=== PATIENT | female | born 1980 | race Hispanic/Latino ===

== ENCOUNTER 2021-05-13 10:52 | Outpatient (CLI) | payer OTHER | END 2021-05-13 10:53 | disposition home or self-care (01) | LOC: CSHWCC 10:52 | PROVIDERS: ATTEND Nurse Practitioner Family | DX: T81.89XD Other complications of procedures, not elsewhere classified, subsequent encounter (principal); L98.491 Non-pressure chronic ulcer of skin of other sites limited to breakdown of skin; K57.20 Diverticulitis of large intestine with perforation and abscess without bleeding; I10 Essential (primary) hypertension; G89.11 Acute pain due to trauma; Z93.3 Colostomy status | CPT/HCPCS: 97605; 99203; G0463 ==

== ENCOUNTER 2021-05-17 10:56 | Outpatient (CLI) | payer SELFPAY | END 2021-05-17 10:57 | disposition home or self-care (01) | LOC: CSHWCC 10:56 | PROVIDERS: ATTEND Nurse Practitioner Family | DX: T81.89XD Other complications of procedures, not elsewhere classified, subsequent encounter (principal); L98.491 Non-pressure chronic ulcer of skin of other sites limited to breakdown of skin; K57.20 Diverticulitis of large intestine with perforation and abscess without bleeding; G89.11 Acute pain due to trauma; I10 Essential (primary) hypertension; Z93.3 Colostomy status | CPT/HCPCS: 97605; 99213; G0463 ==

== ENCOUNTER 2021-05-20 09:48 | Outpatient (CLI) | payer SELFPAY | END 2021-05-20 09:49 | disposition home or self-care (01) | LOC: CSHWCC 09:48 | PROVIDERS: ATTEND Nurse Practitioner Family | DX: T81.89XD Other complications of procedures, not elsewhere classified, subsequent encounter (principal); L98.491 Non-pressure chronic ulcer of skin of other sites limited to breakdown of skin; G89.11 Acute pain due to trauma; I10 Essential (primary) hypertension; K57.20 Diverticulitis of large intestine with perforation and abscess without bleeding; Z93.3 Colostomy status | CPT/HCPCS: 97605; 99213; G0463 ==

== ENCOUNTER 2021-05-24 09:26 | Outpatient (CLI) | payer SELFPAY | END 2021-05-24 09:27 | disposition home or self-care (01) | LOC: CSHWCC 09:26 | PROVIDERS: ATTEND Nurse Practitioner Family | DX: T81.89XD Other complications of procedures, not elsewhere classified, subsequent encounter (principal); L98.491 Non-pressure chronic ulcer of skin of other sites limited to breakdown of skin; K57.20 Diverticulitis of large intestine with perforation and abscess without bleeding; G89.11 Acute pain due to trauma; I10 Essential (primary) hypertension; Z93.3 Colostomy status | CPT/HCPCS: 97605; 99213; G0463 ==

== ENCOUNTER 2021-05-27 09:48 | Outpatient (CLI) | payer SELFPAY | END 2021-05-27 09:49 | disposition home or self-care (01) | LOC: CSHWCC 09:48 | PROVIDERS: ATTEND Nurse Practitioner Family | DX: T81.89XD Other complications of procedures, not elsewhere classified, subsequent encounter (principal); L98.491 Non-pressure chronic ulcer of skin of other sites limited to breakdown of skin; K57.20 Diverticulitis of large intestine with perforation and abscess without bleeding; G89.11 Acute pain due to trauma; I10 Essential (primary) hypertension; Z93.3 Colostomy status | CPT/HCPCS: 99213; G0463 ==

== ENCOUNTER 2021-06-07 10:29 | Outpatient (CLI) | payer SELFPAY | END 2021-06-07 10:30 | disposition home or self-care (01) | LOC: CSHWCC 10:29 | PROVIDERS: ATTEND Nurse Practitioner Family | DX: T81.89XD Other complications of procedures, not elsewhere classified, subsequent encounter (principal); G89.11 Acute pain due to trauma; I10 Essential (primary) hypertension; K57.20 Diverticulitis of large intestine with perforation and abscess without bleeding; L98.491 Non-pressure chronic ulcer of skin of other sites limited to breakdown of skin; Z93.3 Colostomy status | CPT/HCPCS: 99212; G0463 ==